=== PATIENT | female | born 2005 | race Caucasian/White ===

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

== ENCOUNTER 2024-01-08 12:45 | Outpatient (CLI) | payer BC, SELFPAY ==
--- NOTE | 2024-01-08 12:49 | XR_ITS ---
FINAL REPORT CLINICAL HISTORY: cough x1 month FINDINGS: Two views of the chest were obtained. The heart size and pulmonary vascularity are within normal limits. The mediastinum is normal. No acute pulmonary abnormality is identified. There is no pneumothorax. The bony thorax is intact. There is S shaped curvature of the thoracolumbar spine. IMPRESSION: No active cardiopulmonary disease. Reviewed, Interpreted and Dictated by Eyal Rivera III, MD Transcribed by Micki Hurst Authenticated and [facility]
== END 2024-01-08 23:59 | disposition home or self-care (01) ==
LOC: RAD 12:46
PROVIDERS: PCP Family Medicine; Visit Provider Student in an Organized Health Care Education/Training Program
DX: R05.9 Cough, unspecified (principal)
CPT/HCPCS: 71046